=== PATIENT | female | born 1985 | race American Indian/Alaskan Native ===

== ENCOUNTER 2017-02-22 17:10 | Emergency (ER) | payer OTHER ==
--- NOTE | 2017-02-22 21:46 | Emergency Department Report ---
Abscess Boil HPI - HPI Chief Complaint: Skin/Abscess/Foreign Body Stated Complaint: RT HAND MIDDLE FINGER SWOLLEN/THROBBING X 2 WKS Time Seen by Provider: 02/22/17 20:47 Duration: >1 Week (2 weeks) Severity: Moderate (7 out of 10) History: Yes Pain (right distal middle finger painful, swollen and red), No Fever, No Purulent Drainage, No Numbness, No Foreign Body, No Previous History, No Insect Bite HPI: Patient here presented with complaints of right middle finger around nailbed swelling and painful ongoing 2 weeks. She said it's getting worst and her pain is 7 out of 10. Patient bites her nails and said that she's been biting her nails for years and this never happened to her before. Any fever or chills. Denies any injury to finger. Took [id number] pain medication without any relief. Tetanus vaccine is not up-to-date. Home Medications: Previous Rx's Medication Instructions Recorded Last Taken Type Acetaminophen/Codeine [Tylenol 1 tab PO Q6H PRN #15 tab 02/22/17 Unknown Rx /Codeine # 3 tab] Ibuprofen [Motrin] 600 mg PO Q8H PRN #15 tablet 02/22/17 Unknown Rx Sulfamethoxazole/Trimethoprim 1 each PO BID #20 tablet 02/22/17 Unknown Rx [Bactrim DS TAB] Allergies/Adverse Reactions: Allergies Allergy/AdvReac Type Severity Reaction Status Date / Time cefaclor [From [facility]] Allergy Hives Verified 02/22/17 18:59 ED Review of Systems ROS: Stated complaint: RT HAND MIDDLE FINGER SWOLLEN/THROBBING X 2 WKS Other details as noted in HPI Comment: All other systems reviewed and negative Constitutional: denies: chills, fever Respiratory: no symptoms reported Cardiovascular: denies: chest pain, palpitations, syncope Gastrointestinal: denies: abdominal pain, nausea, vomiting Musculoskeletal: arthralgia Skin: other (redness and swelling to finger) Neurological: denies: headache, numbness, paresthesias, confusion ED Past Medical Hx - Past Medical History Previous Medical History?: Yes Hx Diabetes: Yes Hx Asthma: Yes - Surgical History Past Surgical History?: No - Family History Family history: no significant - Social History Smoking Status: Never Smoker Substance Use Type: None - Medications Home Medications: Home Medications Medication Instructions Recorded Confirmed Last Taken Type Acetaminophen/Codeine [Tylenol 1 tab PO Q6H PRN #15 tab 02/22/17 Unknown Rx /Codeine # 3 tab] Ibuprofen [Motrin] 600 mg PO Q8H PRN #15 tablet 02/22/17 Unknown Rx Sulfamethoxazole/Trimethoprim 1 each PO BID #20 tablet 02/22/17 Unknown Rx [Bactrim DS TAB] ED Abscess Boil Physical Exam - Exam General: Vital signs noted. No distress. Alert and acting appropriately. This is a 31-year-old female well-nourished well-developed in no acute distress. Size: 1 cm Exam: Yes Tenderness (distal phalanx right middle finger), Yes Fluctuance ( minimal fluctuance distal phalanx right middle finger), Yes Surrounding Cellulites/Erythema (distal phalanx right middle finger), Yes Normal Neurologic Exam, Yes Normal Circulation, No Lymphangitis, No Crepitation, No Heart Murmur Exam: Medical: No clubbing cyanosis or edema. +2 and Strong pulses. No neurovascular compromise. CV: S1, S2. Tachycardic at 104. PSYCH: Normal mood and behavior I & D Note - I & D Note I & D Note: Procedure for incision and drainage: Right middle finger distal phalanx cleansed with Betadine and normal saline. 0.5 cc of lidocaine injected around fluctuant area. Small incision with 18-gauge needle made with small amount of pus return. Patient with still indurated area. She was given tetanus vaccine and clindamycin. She was instructed to apply warm compresses 3- 4 times a day to facilitate soft and and drainage of abscess. Sterile dry dressing placed the site. ED Course Vital Signs 02/22/17 18:59 Temperature 98 F Pulse Rate 104 H Respiratory 18 Rate Blood Pressure 124/82 O2 Sat by Pulse 100 Oximetry Vital Signs 02/22/17 02/22/17 18:59 23:03 Temperature 98 F Pulse Rate 104 H 92 H Respiratory 18 Rate Blood Pressure 124/82 O2 Sat by Pulse 100 Oximetry - Reevaluation(s) Reevaluation #1: 02/22/17 23:05 See procedure note for incision and drainage of minor abscess. Patient given tetanus vaccine in emergency room. She was also given pain medication or Percocet 5/325 2 tablets prior to procedure. She was also given clindamycin 600 mg IM in emergency room. 02/22/17 23:06 Critical care attestation.: If time is entered above; I have spent that time in minutes in the direct care of this critically ill patient, excluding procedure time. ED Medical Decision Making - Medical Decision Making ED course: Patient with chronic and cellulitis of finger. Status post incision and drainage. Patient was given Clindamycin 600 mg and Percocet 5/325 2 tablets by mouth. She was given strict and 0.5 mls IM in the emergency room. Patient updated in diagnosis and treatment plan. Discharged home. Prescription for Tylenol 3, Motrin and Bactrim. Follow up with outside [facility] she does not have a primary care physician in 3 days and if she cannot get appointment she can return to the emergency room. discharged home with family in stable condition. ED Disposition Clinical Impression: Cellulitis of right middle finger, Paronychia of right middle finger, Pain of right middle finger, Encounter for incision and drainage procedure Disposition: [id number] TO HOME OR SELFCARE Is pt being admited?: No Does the pt Need Aspirin: No Condition: Stable Instructions: Paronychia (ED), Cellulitis (ED), Arthralgia (ED) Additional Instructions: Please apply warm compresses to affected site 3-4 times a day to facilitate drainage. Please take antibiotic as prescribed. Follow-up at this outside Medical Center in 3 days and if he cannot get in then you can return to the hospitals for reevaluation in 3 days after being on antibiotic. Keep affected ear area clean and dry Tylenol 3 can cause drowsiness so please do not drive or operate heavy machinery while taking this medication You can remove dressing in from finger tomorrow Keep Band-Aid to site to prevent any worsening infection. Prescriptions: Acetaminophen/Codeine [Tylenol /Codeine # 3 tab] 1 tab PO Q6H PRN #15 tab PRN Reason: Pain , Severe (7-10) Ibuprofen [Motrin] 600 mg PO Q8H PRN #15 tablet PRN Reason: Pain Sulfamethoxazole/Trimethoprim [Bactrim DS TAB] 1 each PO BID #20 tablet Referrals: [facility] [Outside] - 02/25/17 Forms: Work/School Release Form(ED)
[2017-02-22] MEDS ORDERED: XYLOCAINE 1% MPF 5 mL INFILTRATI ONE (21:47)
[2017-02-22] MEDS ORDERED: BOOSTRIX IM ONE (21:47)
[2017-02-22] MEDS ORDERED: PERCOCET 5/325 PO ONE (21:47)
[2017-02-22] MEDS ORDERED: CLEOCIN IM ONE (23:00)
[2017-02-22 23:28] VITALS: BP 171/107
== END 2017-02-22 23:27 | disposition home or self-care (01) ==
LOC: ED 17:10
DX: L03.011 Cellulitis of right finger (principal); E11.9 Type 2 diabetes mellitus without complications; I10 Essential (primary) hypertension
CPT/HCPCS: 90471; 90715; 96372